=== PATIENT | female | born 1990 | race Caucasian/White ===

== ENCOUNTER 2017-01-23 15:59 | Emergency (ER) | payer SELFPAY ==
[~2017-01-23] VITALS: Ht 165.1 cm; Wt 59.0 kg
[~2017-01-23 15:59] MED LIST: ULTR50TA PO; ZOFR4TAB3 SL
[2017-01-23 16:02] VITALS: BP 120/84; PULSE 92; RESP 16; TEMP 98; O2SAT 100
[2017-01-23 16:30] VITALS: RESP 16; O2SAT 98
[2017-01-23] MEDS ORDERED: SODIUM CHLORIDE 0.9% FLUSH 10 ML FLUSH IV FLUSH PRN (16:45)
[2017-01-23 17:00] LABS: AUTOMATED NEUTROPHIL # 3.9 TH/MM3 (1.8-7.7); BASOPHIL # 0.1 TH/MM3 (0-0.2); EOSINOPHIL # 0.3 TH/MM3 (0-0.4); EOSINOPHIL % 5.6 % (0.0-4.0); HEMATOCRIT 39.1 % (35.0-46.0); HEMO FLAGS DIFF FINAL; LYMPH % 19.8 % (9.0-44.0); LYMPHOCYTE # 1.2 TH/MM3 (1.0-4.8); MEAN CELL VOLUME 91.1 FL (80.0-100.0); MEAN CORPUSCULAR HEMOGLOBIN 30.9 PG (27.0-34.0); MEAN CORPUSCULAR HGB CONC 33.9 % (32.0-36.0); MONO % 8.4 % (0.0-8.0); NEUT % 65.2 % (16.0-70.0); PLATELET COUNT 162 TH/MM3 (150-450); RED BLOOD COUNT 4.29 MIL/MM3 (4.00-5.30); RED CELL DISTRIBUTION WIDTH 12.7 % (11.6-17.2)
[2017-01-23 17:06] LABS: BLOOD, URINE NEG (NEG); GLUCOSE,URINE NEG (NEG); KETONE, URINE NEG (NEG); NITRITE,URINE NEG (NEG); PH, URINE 5.5 (5.0-8.5)
[2017-01-23 17:08] LABS: POTASSIUM 3.4 MEQ/L (3.5-5.1)
[2017-01-23 17:08] LABS: METHOD OF COLLECTION CLEAN CATCH; URINE COLOR STRAW (YELLW/STRAW)
[2017-01-23 17:10] LABS: COMMENT (UR) CULT NOT INDICATED; CULTURE IF INDICATED CULT NOT INDICATED; SQUAMOUS EPITHELIAL CELL URINE 0-5 /hpf (0-5)
[2017-01-23 17:12] LABS: BICARBONATE 22.5 MEQ/L (21.0-32.0)
--- NOTE | 2017-01-23 17:12 | PD ---
HPI Chief Complaint: GI Complaint Time Seen by Provider: 16:20 Travel History International Travel<30 days: No Contact w/Intl Traveler<30days: No Traveled to known affect area: No History of Present Illness HPI 27 yo F c/o three episodes dark blood with stool today. no pain w bm. no acute anemia symptoms. + hx gastritis/gerd. no hx colonoscopy. no similar prior event. no abdominal pain or pain with urination. no beets or other dark flavor foods. PFSH Past Medical History Hx Anticoagulant Therapy: No Blood Disorders: No Cancer: No Cardiovascular Problems: No Diminished Hearing: No Endocrine: No Gastrointestinal Disorders: Yes (GERD) GERD: Yes Genitourinary: No Immune Disorder: No Implanted Vascular Access Dvce: No Musculoskeletal: No Neurologic: No Psychiatric: No Reproductive: No Respiratory: No Immunizations Current: Yes Ulcer: Yes Influenza Vaccination: No ?: Not LMP: 3 WEEK AGO : 0 Past Surgical History Other Surgery: No Social History Alcohol Use: No Tobacco Use: Yes (1/2ppd) Substance Use: Yes (MARIJUANA) Allergies-Medications (Allergen,Severity, Reaction): Coded Allergies: No Known Allergies (Unverified , 01/23/17) Reported Meds & Prescriptions Reported Meds & Active Scripts Active No Active Prescriptions or Reported Medications Review of Systems Except as stated in HPI: all other systems reviewed are Neg Physical Exam Narrative GENERAL: 27 yo F WNWD NAD RECTAL: Trace guaiac positive mucous stool. No fissure or fistula. No external hemorrhoid. Small internal hemorrhoids. SKIN: Focused skin assessment warm/dry. HEAD: Atraumatic. Normocephalic. EYES: Pupils equal and round. No scleral icterus. No injection or drainage. ENT: No nasal bleeding or discharge. Mucous membranes pink and moist. NECK: Trachea midline. No JVD. CARDIOVASCULAR: Regular rate and rhythm. No murmur appreciated. RESPIRATORY: No accessory muscle use. Clear to auscultation. Breath sounds equal bilaterally. GASTROINTESTINAL: Abdomen soft, non-tender, nondistended. Hepatic and splenic margins not palpable. MUSCULOSKELETAL: No obvious deformities. No clubbing. No cyanosis. No edema. NEUROLOGICAL: Awake and alert. No obvious cranial nerve deficits. Motor grossly within normal limits. Normal speech. PSYCHIATRIC: Appropriate mood and affect; insight and judgment normal. Data Data Last Documented VS Vital Signs Date Time Temp Pulse Resp B/P Pulse Ox O2 Delivery O2 Flow Rate FiO2 01/23/17 16:02 98.0 92 16 120/84 100 VS reviewed Orders Basic Metabolic Panel (Bmp) (01/23/17 16:40) Complete Blood Count With Diff (01/23/17 16:40) Urinalysis - C+S If Indicated (01/23/17 16:40) Iv Access Insert/Monitor (01/23/17 16:40) Oximetry (01/23/17 16:40) Sodium Chloride 0.9% Flush (Ns Flush) (01/23/17 16:45) Ed Urine Pregnancytest Poc (01/23/17 16:40) Labs Laboratory Tests Test 01/23/17 01/23/17 16:30 16:35 White Blood Count 6.0 TH/MM3 Red Blood Count 4.29 MIL/MM3 Hemoglobin 13.2 GM/DL Hematocrit 39.1 % Mean Corpuscular Volume 91.1 FL Mean Corpuscular Hemoglobin 30.9 PG Mean Corpuscular Hemoglobin 33.9 % Concent Red Cell Distribution Width 12.7 % Platelet Count 162 TH/MM3 Mean Platelet Volume 9.5 FL Neutrophils (%) (Auto) 65.2 % Lymphocytes (%) (Auto) 19.8 % Monocytes (%) (Auto) 8.4 % Eosinophils (%) (Auto) 5.6 % Basophils (%) (Auto) 1.0 % Neutrophils # (Auto) 3.9 TH/MM3 Lymphocytes # (Auto) 1.2 TH/MM3 Monocytes # (Auto) 0.5 TH/MM3 Eosinophils # (Auto) 0.3 TH/MM3 Basophils # (Auto) 0.1 TH/MM3 CBC Comment DIFF FINAL Differential Comment Sodium Level 139 MEQ/L Potassium Level 3.4 MEQ/L Chloride Level 106 MEQ/L Carbon Dioxide Level 22.5 MEQ/L Anion Gap 11 MEQ/L Blood Urea Nitrogen 10 MG/DL Creatinine 0.57 MG/DL Estimat Glomerular Filtration 129 ML/MIN Rate Random Glucose 80 MG/DL Calcium Level 8.7 MG/DL Urine Collection Type CLEAN CATCH Urine Color STRAW Urine Turbidity CLEAR Urine pH 5.5 Urine Specific [place] 1.010 Urine Protein NEG mg/dL Urine Glucose (UA) NEG mg/dL Urine Ketones NEG mg/dL Urine Occult Blood NEG Urine Nitrite NEG Urine Bilirubin NEG Urine Leukocyte Esterase NEG Urine Squamous Epithelial 0-5 /hpf Cells Microscopic Urinalysis Comment CULT NOT INDICATED MDM Medical Decision Making Medical Screen Exam Complete: Yes Emergency Medical Condition: Yes Medical Record Reviewed: Yes Differential Diagnosis UGIB, LGIB, acute anemia Narrative Course CBC & BMP Diagram 01/23/17 16:30 Concern for internal hemorrhoids. Scripts as below. Return precautions discussed. Diagnosis Primary Impression: Rectal bleed Additional Impression: Bleeding hemorrhoid Referrals: Michelle Olmstead MD 2 days Additional Instructions: You have a choice when it comes to health care, and we are glad that you chose [facility]. Hopefully, we have met your expectations on today's visit. You are welcome to return to [facility] at any time, as we are committed to meeting the health care needs of our community. Med/Other Pt SpecificInfo: Prescription(s) given Scripts Psyllium Powder (Metamucil Original Texture)48.57 % Pow1 Scoop PO TID PRN ( CONSTIPATION) 30 Days Ref 3 1 rounded [place] in 8 oz of liquid at the first sign of irregularity. Prov:Ruben Otero MD 01/23/17 Phenylephrine-[place] Butter Supp (Preparation H Supp)0.25-88.44 % Supp1 Supp RECTAL QID PRN (INFLAMMATION) 14 Days Ref 0 Prov:Ruben Otero MD 01/23/17 Disposition: 01 DISCHARGE HOME Condition: Stable Ruben Oetro MD Jan 23, 2017 17:12
[2017-01-23 17:26] VITALS: BP 111/57; PULSE 66; RESP 16; O2SAT 98
[2017-01-23] MEDS ORDERED: PHEN60SU RECTAL (17:31)
[2017-01-23] MEDS ORDERED: META48.53 PO (17:31)
[2017-01-23] MEDS ORDERED: POTASSIUM CHLORIDE 20 MEQ CONTROLLED RELEASE TAB PO ONE (17:45)
== END 2017-01-23 17:44 | disposition home or self-care (01) ==
LOC: PHED 15:59
DX: K64.9 Unspecified hemorrhoids (principal); K62.5 Hemorrhage of anus and rectum; K21.9 Gastro-esophageal reflux disease without esophagitis
CPT/HCPCS: 80048; 81001; 84703; 85025; 99283

== ENCOUNTER 2017-12-03 18:10 | Emergency (ER) | payer OTHER ==
[~2017-12-03] VITALS: Ht 165.1 cm; Wt 59.0 kg
[~2017-12-03 18:10] MED LIST changes: +META48.53 PO; +PHEN60SU RECTAL; -ULTR50TA PO; -ZOFR4TAB3 SL
[2017-12-03 18:13] VITALS: BP 113/60; PULSE 100; RESP 18; TEMP 98.7; O2SAT 98
[2017-12-03] MEDS ORDERED: AUGM875T3 PO (18:29)
--- NOTE | 2017-12-03 18:29 | PD ---
HPI Chief Complaint: Bite or Sting Time Seen by Provider: 18:21 Travel History International Travel<30 days: No Contact w/Intl Traveler<30days: No Traveled to known affect area: No History of Present Illness HPI 27-year-old female presents to the emergency department for evaluation of a dog bite that occurred yesterday evening. Patient states that a neighbor's pit bull bit her left hand. Patient states her tetanus immunization is not up-to- date. Current pain is 6/10, without radiation. Mild severity. Patient reports no chronic medical problems and takes no prescribed medications. She denies any chance of . PFSH Past Medical History Hx Anticoagulant Therapy: No Blood Disorders: No Cancer: No Cardiovascular Problems: No Diminished Hearing: No Endocrine: No Gastrointestinal Disorders: Yes (GERD) GERD: Yes Genitourinary: No Immune Disorder: No Implanted Vascular Access Dvce: No Musculoskeletal: No Neurologic: No Psychiatric: No Reproductive: No Respiratory: No Immunizations Current: Yes Ulcer: Yes ?: Not LMP: LAST WEEK : 0 Past Surgical History Other Surgery: No Social History Alcohol Use: No Tobacco Use: Yes (1/2ppd) Substance Use: Yes (MARIJUANA) Allergies-Medications (Allergen,Severity, Reaction): Coded Allergies: No Known Allergies (Unverified Adverse Reaction, Unknown, 12/03/17) Reported Meds & Prescriptions Reported Meds & Active Scripts Active Augmentin (Amoxicillin-Clavulanate) 875-125 Mg Tab 1 Tab PO BID 10 Days Review of Systems Except as stated in HPI: all other systems reviewed are Neg Physical Exam Narrative GENERAL: Well-nourished, well-developed female patient, ambulatory. Afebrile. SKIN: Focused skin assessment warm/dry. Patient has a 0.5 cm superficial laceration to the webspace between the first and second digits of the left hand. No active bleeding. HEAD: Normocephalic. Atraumatic. EYES: No scleral icterus. No injection or drainage. NECK: Supple, trachea midline. No JVD or lymphadenopathy. CARDIOVASCULAR: Regular rate and rhythm without murmurs, gallops, or rubs. RESPIRATORY: Breath sounds equal bilaterally. No accessory muscle use. Lung sounds are clear to auscultation. MUSCULOSKELETAL: No cyanosis, or edema. BACK: Nontender without obvious deformity. No CVA tenderness. Data Data Last Documented VS Vital Signs Date Time Temp Pulse Resp B/P (MAP) Pulse Ox O2 Delivery O2 Flow Rate FiO2 12/03/17 18:13 98.7 100 18 113/60 (77) 98 Orders Orders Amoxicil-Clavulanate (Augmentin) (12/03/17 18:30) Tetanus/Diphtheria Tox Adult (Tetanus/Di (12/03/17 18:30) Ed Discharge Order (12/03/17 18:30) MDM Medical Decision Making Medical Screen Exam Complete: Yes Emergency Medical Condition: Yes Medical Record Reviewed: Yes Differential Diagnosis Dog bite versus laceration versus cellulitis Narrative Course 27-year-old female presents to the emergency department for evaluation of dog bite to the left hand. She appears well on exam. Laceration is superficial. Patient is given first dose of Augmentin. Tetanus immunization is updated. Patient will be discharged with a prescription for Augmentin. She is instructed on proper wound care. She is instructed to monitor closely for infection return for any evidence of infection. She verbalizes agreement. The patient was discharged in stable condition with instructions, including return instructions and follow up instructions. Diagnosis Primary Impression: Dog bite Qualified Codes: W54.0XXA - Bitten by dog, initial encounter Referrals: Primary Care Physician call for appointment Patient Instructions: Animal Bite (ED), General Instructions Additional Instructions: Clean twice daily with soap and water apply [id number] antibiotic ointment. Take antibiotic as directed until gone. Follow-up with a primary care physician. Return to the emergency department for any acute worsening of symptoms. Med/Other Pt SpecificInfo: Prescription(s) given Scripts Amoxicillin-Clavulanate (Augmentin) 875-125 Mg Tab 1 TAB PO BID for Infection for 10 Days, #20 TAB 0 Refills Prov: Kat Khan 12/03/17 Disposition: 01 DISCHARGE HOME Condition: Stable Kat Khan December 03, 2017 18:29
[2017-12-03] MEDS ORDERED: TETANUS/DIPHTHERIA TOXOID ADULT 0.5 ML VIAL IM ONE (18:30)
[2017-12-03] MEDS ORDERED: AMOXICILLIN/CLAVULANATE K 875 MG TAB PO ONE (18:30)
== END 2017-12-03 18:51 | disposition home or self-care (01) ==
LOC: PHEFT 18:10
DX: S60.572A Other superficial bite of hand of left hand, initial encounter (principal); W54.0XXA Bitten by dog, initial encounter; Z23 Encounter for immunization
CPT/HCPCS: 90471; 90714

== ENCOUNTER 2017-12-07 20:27 | Emergency (ER) | payer OTHER ==
[~2017-12-07 20:27] MED LIST changes: +AUGM875T3 PO; -META48.53 PO; -PHEN60SU RECTAL
[2017-12-07 20:31] VITALS: BP 117/76; PULSE 95; RESP 20; TEMP 97.9; O2SAT 99
== END 2017-12-07 22:03 | disposition left against medical advice (07) ==
LOC: PHED 20:27
DX: R51 Headache (principal); Z53.21 Procedure and treatment not carried out due to patient leaving prior to being seen by health care provider
CPT/HCPCS: 99281